=== PATIENT | female | born 2005 ===

== ENCOUNTER 2025-01-12 15:15 | Inpatient (IN) | payer OTHER ==
[2025-01-15] MEDS ORDERED: IBUprofen 600 MG TABLET PO PRN (16:45)
[2025-01-15 17:43] VITALS: BP 93/62
[2025-01-15 18:15] LABS: HEMATOCRIT 35.4 % (36.0-45.00); HEMOGLOBIN 11.8 g/dL (12.0-15.00); MEAN CELL VOLUME 82.6 fL (80.00-100.00); MEAN CORPUSCULAR HEMOGLOBIN 27.5 pg (27.00-32.0); MEAN CORPUSCULAR HGB CONC 33.3 g/dl (32.0-36.0); PLATELET COUNT 210 K/uL (150-450); RED BLOOD COUNT 4.29 M/uL (4.00-6.00); RED CELL DISTRIBUTION WIDTH 14.5 % (11.5-14.5)
[2025-01-16] VITALS: BP 108/71
[2025-01-16 07:50] VITALS: BP 98/67
[2025-01-16 16:00] VITALS: BP 110/74
[2025-01-16 20:00] VITALS: BP 102/68
[2025-01-17] VITALS: BP 98/62
[2025-01-17 08:49] VITALS: BP 98/64
== END 2025-01-17 12:36 | disposition home or self-care (01) | DRG 807 ==
LOC: OB/GYN 01-15 16:49 → LDR 01-17 15:15
PROVIDERS: Obstetrics & Gynecology; ADMIT Specialist; ATTEND Specialist
PROC: 10E0XZZ Delivery of Products of Conception, External Approach (ICD-10-PCS; principal; 2025-01-15)
PROC: 4A1HXCZ Monitoring of Products of Conception, Cardiac Rate, External Approach (ICD-10-PCS; 2025-01-15)
DX: O80 Encounter for full-term uncomplicated delivery (principal); Z37.0 Single live birth; Z3A.39 39 weeks gestation of pregnancy